=== PATIENT | female | born 1965 | race Caucasian/White ===

== ENCOUNTER → 2023-06-24 07:28 | Outpatient (REF) | payer BC, SELFPAY | LOC: HWRAD 07:28 | PROVIDERS: ATTENDING PHYSICIAN Internal Medicine Gastroenterology; FAMILY PHYSICIAN Internal Medicine | DX: B18.1 Chronic viral hepatitis B without delta-agent (principal) | CPT/HCPCS: 76700 ==

== ENCOUNTER → 2023-12-31 19:17 | Outpatient (REF) | payer BC, SELFPAY | LOC: WDC 19:17 | PROVIDERS: ATTENDING PHYSICIAN Internal Medicine | DX: Z12.31 Encounter for screening mammogram for malignant neoplasm of breast (principal) | CPT/HCPCS: 77063; 77067 ==

== ENCOUNTER → 2024-06-30 14:12 | Outpatient (REF) | payer BC, SELFPAY | LOC: HWRAD 14:12 | PROVIDERS: ATTENDING PHYSICIAN Internal Medicine Endocrinology, Diabetes & Metabolism; FAMILY PHYSICIAN Internal Medicine | DX: E05.90 Thyrotoxicosis, unspecified without thyrotoxic crisis or storm (principal); D35.01 Benign neoplasm of right adrenal gland | CPT/HCPCS: 74150; 76536 ==

== ENCOUNTER 2024-07-06 06:21 | Day surgery (SDC) | payer BC, SELFPAY | END 2024-07-06 10:40 | disposition home or self-care (01) | LOC: GI 06:21 | PROVIDERS: ATTENDING PHYSICIAN Internal Medicine Gastroenterology | DX: R10.13 Epigastric pain (principal); R11.2 Nausea with vomiting, unspecified; R19.7 Diarrhea, unspecified; K44.9 Diaphragmatic hernia without obstruction or gangrene; K22.89 Other specified disease of esophagus | CPT/HCPCS: 43239; 88305; 88342 ==